=== PATIENT | male | born 1960 | race Hispanic/Latino ===

== ENCOUNTER → 2025-05-09 | Outpatient (CLI) | payer OTHER ==
--- NOTE | 2025-05-10 07:12 | HMCIMG ---
EXAM: CT Cardiac calcium scoring. CLINICAL HISTORY: Screening. TECHNIQUE: Thin collimated axial CT cardiac images were obtained. A CT scan is done according to ALARA (As Low As Reasonably Achievable). CONTRAST: None. COMPARISON: None provided. FINDINGS: Calcium Score: VESSEL Number of lesions Volume mm3 Equi. Mass/mg Calcium score LM 2 160.7 - 189.2 LAD 3 426.5 - 555.4 LCX 1 18.3 - 26.5 RCA 2 110.4 - 164.9 Total 8 716.0 - 936.0 IMPRESSION: The total calcium score is 936.0. The observed calcium score of 936 is at percentile 96 for subjects of the same age, gender, and race/ethnicity who are free of clinical cardiovascular disease and treated diabetes. /[place]
== END | disposition home or self-care (01) ==
LOC: RAH 11:20
PROVIDERS: ATTEND Internal Medicine Cardiovascular Disease
DX: Z13.6 Encounter for screening for cardiovascular disorders (principal)
CPT/HCPCS: 75571

== ENCOUNTER 2025-10-28 20:40 | Emergency (ER) | payer OTHER ==
[~2025-10-28] VITALS: Ht 180.3 cm; Wt 90.7 kg
[~2025-10-28 20:40] MED LIST: CEPH500B PO
--- NOTE | 2025-10-28 21:04 | ERN ---
General Chief Complaint: Multiple Complaints Stated Complaint: HEADACHE, DIZZINESS Time Seen by MD: 20:45 Source: patient History of Present Illness Initial Comments Patient is a 65-year-old male coming in complaining of URI symptoms with a headache. Per patient he did feel a little dizzy earlier today. Long with this he has been having right frontal and maxillary pain. Allergies: Coded Allergies: No Known Drug Allergies (Unverified Allergy, Unknown, 05/24/25) Home Meds Active Scripts Cephalexin Monohydrate (Keflex) 500 Mg Cap, 500 MG PO QID for 10 Days, #40 CAP Prov:TAMIKO DANIEL [employer] 05/24/25 Past Medical History Past Medical History: Diabetes-Type II, High Cholesterol, Hypertension Past Surgical History: CABG, Other Surgical History Other: RT BKA, ROS Dictation CONSTITUTIONAL: No chills, no fever, no weakness, no diaphoresis, no malaise. HEAD/FACE: No signs of trauma. EENT: No eye pain, no blurred vision, no tearing, no double vision, no ear pain, no ear discharge, no nose pain, nasal congestion, no throat pain, no throat swelling, no mouth pain. RESPIRATORY: cough, no orthopnea, no SOB, no stridor, no wheezing. CARDIOVASCULAR: No chest pain, no edema, no palpitations, no syncope. GASTROINTESTINAL/ABDOMINAL: No abdominal pain, no constipation, no diarrhea, no nausea, no vomiting. GENITOURINARY: No abnormal discharge, no dysuria, no frequent urination, no hematuria. No complaints of pain in the genitals. MUSCULOSKELETAL: No back pain, no gout, no joint pain, no joint swelling, no muscle pain, no muscle stiffness, no neck pain. INTEGUMENTARY: No change in color, no change in hair/nails, no dryness, no lesion, no lumps, no rash. NEUROLOGICAL/PSYCH: No anxiety, not depressed, no emotional problem, no headache, no numbness, no pre-existing deficit, no history of seizures, no tremors, no weakness. HEMATOLOGIC/LYMPHATIC: Not anemic, no history of blood clots, no apparent bleeding, no bruising, glands not swollen. All Systems Negative, Except as Noted. Physical Exam Physical Exam Dictation VITAL SIGNS: Reviewed. GENERAL APPEARANCE: Alert, oriented x3, no acute distress, obese. HEAD AND FACE: Non-traumatic. EYES: PERRL, pink conjunctivas, eyelid no trauma, anterior chamber clear. EARS: Pinnas intact and no signs of trauma or erythema. Ear canals clear and no discharge. TMs no erythema. NOSE: No discharge, no bleeding. OROPHARYNX: Mouth normal, teeth no caries, tongue pink. Pharynx clear, no erythema. Tonsils no exudates, no abscesses noted. Mucous membrane moist. NECK: Supple, non-tender, no thyromegaly, no masses, no JVD, no bruits. BREAST: Deferred. CHEST: No tenderness, no crepitus, no paradoxical movement, no retractions. LUNGS: Clear, well-ventilated, symmetric, no rales, no wheezing, no rhonchi, no stridor, good breath sounds bilaterally. HEART: Regular rate, regular rhythm, no murmur, no gallops. VASCULAR: No peripheral edema. ABDOMEN: Soft, positive bowel sounds, nondistended, no guarding, nontender, no rebound, no masses no hepatomegaly, no splenomegaly, no Rosado's sign, no hernias. RECTAL: Deferred. GENITAL: Deferred. NEUROLOGICAL: Normal speech, gross motor function intact, gross sensory function intact. MUSCULOSKELETAL: Neck nontender, full range of motion, back nontender, full range of motion. EXTREMITIES: Nontender, full range of motion. SKIN: Color pink, dry, no turgor, no rash, no lacerations, no abrasions, no contusions. LYMPHATICS: Deferred. Results Laboratory and Microbiology Lab and Micro Result Laboratory Tests Test 10/28/25 21:14 10/28/25 21:50 White Blood Count 7.3 K/uL (4.8-10.8) Red Blood Count 4.41 MIL/uL (4.50-6.20) L Hemoglobin 12.5 g/dL (14.0-18.0) L Hematocrit 38.5 % (42-54) L Mean Corpuscular Volume 87.3 fL (79-99) Mean Corpuscular Hemoglobin 28.3 pg (27.0-33.0) Mean Corpuscular Hemoglobin Concent 32.5 g/dL (32.0-36.0) Red Cell Distribution Width 15.1 % (11.0-15.5) Platelet Count 238 K/uL (130-400) Mean Platelet Volume 9.3 fL (7.5-10.5) Nucleated Red Blood Cells 0.0 % (0.0-0.19) Sodium Level 140 mmol/L (136-145) Potassium Level 4.5 mmol/L (3.5-5.1) Chloride Level 104 mmol/L (101-111) Carbon Dioxide Level 30 mmol/L (21-32) Blood Urea Nitrogen 12 mg/dL (7-18) Creatinine 0.8 mg/dL (0.5-1.3) Glomerular Filtration Rate Calc 98 mL/min (>90) Random Glucose 128 mg/dL (70-105) H Total Calcium 9.0 mg/dL (8.5-10.1) Influenza Type A Antigen Negative For Type A Influenza Type B Antigen Negative For Type B SARS-CoV-2, RNA, NAAT NEGATIVE SARS CoV-2 Group A Streptococcus Rapid negative (NEGATIVE) Labs Reviewed?: Yes MDM MDM: Differential diagnosis: Sinusitis, headache, URI, COVID, strep, flu Rationale: Tests considered and ordered secondary to shared decision making include: Previous outside records reviewed: Old ER visits. Risk of complication and/or morbidity or mortality of patient management: None Medications-Per medication reconciliation Need for hospitalization: Patient does not meet criteria for hospitalization. Need for emergency major/minor surgery: No Patient is a 65-year-old man coming in complaining of right frontal headache. Patient states that these symptoms has been ongoing for a couple of days. On physical exam patient is tender in the right maxillary and right frontal sinus cavities. Laboratory workup within normal limits. Patient also was present during with the bilateral tympanic membrane erythema oropharyngeal erythema nasal turbinate swelling bilateral. These findings are all consistent with a sinusitis. Patient will be discharged in stable condition with a diagnosis sinusitis antibiotics nasal steroids and antihistamines we will be provided. Patient states that he feels much better with the IV fluids and Tylenol. ED Course Orders Procedure Category Date Status Time Cbc Without LAB 10/28/25 Complete Differential 20:59 Basic Metabolic Panel LAB 10/28/25 Complete 20:59 Influenza Type A & B, LAB 10/28/25 Complete Rapid 20:59 Covid Rna Naat LAB 10/28/25 Complete 20:59 Acetaminophen 500mg PHA 10/28/25 Complete Tab (Tylenol 500mg T 21:00 0.9%Nacl 1000ml (Ns PHA 10/28/25 Complete 1000ml) 21:00 Rapid (Group A Strep) LAB 10/28/25 Complete 21:41 Current Medications Medications (Trade) Dose Ordered Sig/Sanchez Route PRN Reason Start Time Stop Time Status Last Admin Dose Admin Acetaminophen (TYLenol 500MG TAB) 1,000 mg ONCE ONCE PO 10/28/25 21:00 10/28/25 21:06 DC 10/28/25 21:30 Sodium Chloride 1,000 ml @ 0 mls/hr ONCE ONCE IV 10/28/25 21:00 10/28/25 21:06 DC 10/28/25 21:30 Vital Signs Date Time Temp Pulse Resp B/P (MAP) Pulse Ox O2 Delivery O2 Flow Rate FiO2 10/28/25 21:30 73 19 151/85 97 Room Air* 0 21 10/28/25 20:42 97.9 79 20 154/88 99 Room Air DX & DISP Disposition: Discharge Departure Impression: Primary Impression: Sinusitis chronic, frontal Condition: Stable Scripts Loratadine (Loratadine) 10 Mg Tablet 1 TAB PO DAILY for allergy symptoms for 30 Days, #30 TAB 0 Refills Prov: TIAN LANE MD 10/28/25 Fluticasone Propionate (Flonase Nasal [place]) 50 Mcg/Actuation [place] 2 SPRAY NS DAILY, #16 GM 0 Refills Prov: TIAN LANE MD 10/28/25 Amoxicillin/Potassium Clav (Amox Tr-K Clv 875-125 mg Tab) 875 Mg-125 Mg Tablet 1 TAB PO BID for 10 Days, #20 TAB 0 Refills Prov: TIAN LANE MD 10/28/25 Additional Instructions: FOLLOW-UP WITH PRIMARY CARE PROVIDER IN 1 TO 2 DAYS. TAKE MEDICATIONS DIRECTED HERE IN THE EMERGENCY ROOM. OKAY TO CONTINUE HOME MEDICATIONS UNLESS OTHERWISE DISCUSSED DURING YOUR VISIT IN THE EMERGENCY ROOM TODAY. RETURN TO YOUR NEAREST EMERGENCY ROOM IF SYMPTOMS WORSEN OR IF THERE IS NO IMPROVEMENT. CALL 911 IF YOU NEED IMMEDIATE ASSISTANCE. TAKE TYLENOL [id number] NEEDED AND IF NO CONTRAINDICATIONS ARE PRESENT. INCREASE ORAL HYDRATION. A WOUND CULTURE OR URINE CULTURE WAS ORDERED HERE IN THE EMERGENCY ROOM DEPARTMENT PLEASE FOLLOW-UP WITH PRIMARY CARE PROVIDER AND ADVISE THEM TO GET REPORTS FROM OUR FACILITY. IF YOU HAD ANY VIVIAN WRAP/SPLINTS THAT WERE APPLIED HERE, PLEASE DO NOT REMOVE THEM UNTIL YOU SEE YOUR PRIMARY CARE OR SPECIALTY. Referrals: Referrals: NELSON HARDWICK (PCP) Time of Disposition: 22:[address] MD Oct 28, 2025 21:04
[2025-10-28] MEDS: 0.9%NACL 1000ML 1,000 ML IV ONE (21:30)
[2025-10-28 21:41] LABS: NUCLEATED RED BLOOD CELLS 0.0 % (0.0-0.19); PLATELET COUNT (AUTO) 238.0 K/uL (130-400); RED BLOOD CELL COUNT(AUTO) 4.41 MIL/uL (4.50-6.20); RED CELL DISTRIBUTION WIDTH 15.1 % (11.0-15.5); WHITE BLOOD COUNT (AUTO) 7.3 K/uL (4.8-10.8)
[2025-10-28 21:50] LABS: CREATININE 0.8 mg/dL (0.5-1.3); GLOMERULAR FILTR. RATE CALC 98.0 mL/min (>90); GLUCOSE,RANDOM 128.0 mg/dL (70-105); SODIUM SERUM 140.0 mmol/L (136-145); UREA NITROGEN, BLOOD 12.0 mg/dL (7-18)
[2025-10-28 21:57] LABS: SARS-CoV-2, RNA, NAAT NEGATIVE SARS CoV-2 (NEGATIVE)
[2025-10-28 22:03] LABS: INFLUENZA TYPE A Negative For Type A (NEGATIVE); INFLUENZA TYPE B Negative For Type B (NEGATIVE)
[2025-10-28] MEDS ORDERED: AMOX1TAB16 PO (22:44)
[2025-10-28] MEDS ORDERED: LORA10TA7 PO (22:44)
[2025-10-28] MEDS ORDERED: FLUT16H NS (22:44)
[2025-10-28 22:48] VITALS: BP 156/89; PULSE 94; RESP 18; TEMP 98.5; O2SAT 98
== END 2025-10-28 22:56 | disposition home or self-care (01) ==
LOC: EDH 20:40
DX: J32.1 Chronic frontal sinusitis (principal); J32.0 Chronic maxillary sinusitis; E11.9 Type 2 diabetes mellitus without complications; E78.00 Pure hypercholesterolemia, unspecified; I10 Essential (primary) hypertension; R42 Dizziness and giddiness; Z89.511 Acquired absence of right leg below knee; Z95.1 Presence of aortocoronary bypass graft; Z20.822 Contact with and (suspected) exposure to COVID-19
CPT/HCPCS: 99283; 96360; 87635; 80048; 85027; 87880; 87804 ×2; 36415; J7030